=== PATIENT | male | born 1965 | race Two or more races ===

== ENCOUNTER 2018-09-28 07:30 | Inpatient (IN) | payer OTHER ==
[2018-09-28] VITALS (30 sets, daily range): BP systolic 90–136; BP diastolic 38–65; PULSE 48–80; RESP 7–25; Ht 177.8 cm; Wt 82.6 kg
[~2018-09-28] VITALS: Ht 177.8 cm; Wt 82.6 kg
[~2018-09-28 07:30] MED LIST: CEFAZOLIN 1 GM INJ ONE; DEXAMETHASONE 4 MG/ML 5 ML INJ ONE; SUCCINYLCHOLINE CHLORIDE 100 MG/5 ML SYG IV ONE
[2018-09-28] MEDS ORDERED: POLYMYXIN/BACITRACIN 1L IRRIG ONE (09:21)
[2018-09-28] MEDS ORDERED: BUPIVACAINE 0.25% (MPF) 30 ML INJ ONE (09:21)
--- NOTE | 2018-09-28 09:37 | PREAC ---
Date/Time of Note Date/Time of Note DATE: 09/28/18 TIME: 09:36 Anesthesia Eval and Record Evaluation Time Pre-Procedure Interview DATE: 09/28/18 TIME: 09:36 Age 53 Sex male NPO: 8 hrs Preoperative diagnosis ventral hernia Planned procedure component separation for repair of ventral hernia Past Medical History Past Medical History: Includes Endo: Other (h/p pheocytochroma s/p removal and cured) Surgery & Anesthesia Issues No known issue Meds Anticoagulation: No Beta Steve within 24 hr: No Reason Beta Steve not given: Pt. not on B-Steve Meds reviewed: Yes Allergies Allergies Reviewed: Yes Labs/Studies Labs Reviewed: Reviewed by anesthesiologist test: N/A Studies: ECG Pre-procedure Exam Last vitals Vital Signs Date Temp Pulse Resp B/P (MAP) Pulse Ox O2 O2 Flow FiO2 Time Delivery Rate 09/28/18 97.2 54 16 136/62 100 Room Air 07:48 (86) Airway: Adequate mouth opening, Adequate thyromental dist Mallampati: Mallampati III Teeth: Normal Lung: Normal Heart: Normal ASA Physical Status ASA physical status: 2 Emergency: None Planned Anesthetic General/MAC: ETT Planned Pain Management Single shot nerve block, Parenteral pain med, Local by surgeon Pre-operative Attestations Prior to commencing anesthesia and surgery, the patient was re-evaluated, there was verification of: *The patient's identity *The results of appropriate recent lab work and preoperative vital signs *The above evaluation not changing prior to induction *Anesthetic plan, risk benefits, alternative and complications discussed with patient/family; questions answered; patient/family understands, accepts and wishes to proceed. TATO GONGORA MD Sep 28, 2018 09:37
[2018-09-28] MEDS ORDERED: LEVALBUTEROL (NEB) 1.25 MG/0.5 ML AMP HHN PRN (10:00)
[2018-09-28] MEDS ORDERED: ONDANSETRON 4 MG INJ IV PRN ×2 (10:00→15:00)
[2018-09-28] MEDS ORDERED: HYDROmorphONE 1 MG/5 ML IV SYRINGE IV PRN ×3 (10:00)
[2018-09-28] MEDS ORDERED: FENTAnyl 50 MCG/ML VIAL IV PRN ×2 (10:00)
[2018-09-28] MEDS ORDERED: MEPERIDINE 25 MG INJ IV PRN (10:00)
[2018-09-28] MEDS ORDERED: KETOROLAC 30 MG INJ IV PRN (10:00)
[2018-09-28] MEDS ORDERED: DIPHENHYDRAMINE 50 MG INJ IV PRN ×2 (10:00→15:00)
[2018-09-28] MEDS ORDERED: FENTAnyl 50 MCG/ML VIAL ONE ×2 (10:23→12:54)
[2018-09-28] MEDS ORDERED: MIDAZOLAM 1 MG/ML 2 ML INJ ONE (10:24)
[2018-09-28] MEDS ORDERED: ONDANSETRON 4 MG INJ ONE (10:27)
[2018-09-28] MEDS ORDERED: METOCLOPRAMIDE 10 MG INJ ONE (10:29)
[2018-09-28] MEDS ORDERED: ROPIVACAINE 0.5 % 30 ML VIAL ONE (10:31)
[2018-09-28] MEDS ORDERED: SOD CHLORIDE 0.9% 1,000 ML IV SCH (12:00)
[2018-09-28] MEDS ORDERED: LIDOCAINE 2% (SDV) 5 ML INJ ONE (12:48)
[2018-09-28] MEDS ORDERED: PROPOFOL 20 ML ONE (12:48)
[2018-09-28] MEDS ORDERED: ROCURONIUM 50 MG INJ ONE ×2 (12:49)
[2018-09-28] MEDS ORDERED: morphine SULFATE/PF (10 MG/10 ML) INJ ONE (12:49)
[2018-09-28] MEDS ORDERED: hydrALAzine 20 MG INJ ONE (13:09)
--- NOTE | 2018-09-28 14:32 | OPR ---
Date/Time of Note Date/Time of Note DATE: 09/28/18 TIME: 14:16 Operative Report Procedure Date: Sep 28, 2018 Preoperative Diagnosis recurrent incarcerated incisional hernia pheochromocytoma Postoperative Diagnosis same Operation/Procedure Performed 1. right rectus musculocutaneous flap 2. left rectus musculocutaneous flap 3. open recurrent incarcerated incisional hernia repair 4. implantation of 15 x 20 cm proceed mesh 5. open lysis of adhesions 90 mins 6. repair of right rectus muscle and rectus sheath 7. repair of left rectus muscle and rectus sheath 8. open umbilical hernia repair 9. localized adjacent tissue transfer with the use of skin flaps 84 sq cm defect of the abdominal trunk Surgeon see signature line Twisting Frame Fixer Shan Womack Anesthesia Type: general Estimated Blood Loss: 100 - 150 ml's Transfusion none Specimen none Grafts/Implants none Complications none Pt Condition Post Procedure: stable Indications This is a 53-year-old male with a very challenging recurrent incarcerated incisional hernia. He had an open operation for a pheochromocytoma which had to be entered into the abdomen twice. He has a chevron incision that is extensive and a large midline incision. The patient was told that this was a very difficult operation due to his 2 incisions that are out across to each other. This promotes poor vascularity of the surrounding tissues and recurrent hernia is very likely. These risks and other additional risks were discussed the patient thoroughly. All risks benefits personnel potential complications were discussed the patient. Potential complications including but not limited to bleeding infection mesh infection mesh migration recurrence of hernia bowel injury intra-abdominal organ injury fistula were discussed the patient. Patient had ample time for questions and all questions were answered. Due to the discomfort from the hernia patient wanted to proceed with the operation. Procedure Description Patient is taken to the OR and prepped and draped in usual sterile fashion. Surgical timeout is performed. IV antibiotics were given. The midline cicatrix was initially excised with a 10 blade this is taken off with cautery. The midline is then sharply entered with a 10 blade. The very large hernia defect is identified. There was an extensive amount of adhesions to the anterior abdominal wall due to his multiple operations. Careful lysis of adhesions was performed allowing small bowel to be removed from the area of focus along the midline. The incarcerated hernia was then reduced along with careful lysis of adhesions. This area was then verified so that fascial edges were freshened. Left rectus flap was developed by initially entering the rectus space. The rectus space was entered and this incision was extended superiorly and inferiorly along the medial aspect of the rectus muscle. Initial inspection showed that due to the chevron incision that the rectus muscle was attenuated. Additionally the rectus sheath was also attenuated but disconnected at the site of the chevron incision. The posterior rectus sheath was repaired using nvvrfv-[id number] #1 Prolene on the left aspect. The rectus muscle was also repaired with reapproximation of the superior inferior left rectus with [id number]-oo-nwgmo #1 Prolenes. The anterior rectus sheath was also repaired with mgqnss-ob-lsgxz #1 Prolene. Due to the prior incisions and adhesion formation the retrorectus space could not be entered easily. The anterior rectus space was however slightly less difficult and accessed. The left rectus musculofascial flap was developed in this fashion. The right rectus musculofascial flap was developed. The right rectus space was entered and this space was developed superior and inferiorly along the medial aspect of the rectus muscle. The right rectus muscle had the similar features of the left rectus muscle with severe attenuation of the muscle. Additionally due to the chevron incision in the subsequent recurrent hernia was incarcerated with the anterior and posterior rectus sheath were also in discontinuity. The right posterior rectus sheath was reapproximated and repaired with [id number]-qr-kvyai #1 Prolenes. The rectus muscle was then also reapproximated with ngsagi-ui-qlnii #1 Prolenes. The anterior rectus sheath on the right rectus was also repaired using zptdrn-jg-pufkm #1 Prolene. The posterior rectus sheath and the rectus muscle were then closed in the midline with a running #1 loop PDS from superior to inferior and inferior to superior. At the inferior aspect of the midline incision a small umbilical hernia was identified. The umbilical hernia was repaired with ggjomk-qy-usxwe #1 Prolenes. After development of the anterior rectus space and with good hemostasis a 15 x 20 cm proceed mesh was secured in place with interrupted #1 Prolene in the anterior rectus space. The anterior rectus sheath was then closed primarily with a running #1 loop PDS from superior to inferior and inferior superior and tied in the middle. Antibiotic irrigation was applied to the incision. Very large skin defect remained. Localized adjacent to his transfer with these of skin flaps was performed. Right and left skin flaps were reapproximated and brought in the midline. The skin was then closed with skin millie. Dry dressings were applied. The anesthesiologist then proceeded to place an epidural for pain control. Rishabh ALLISON Sep 28, 2018 14:30
[2018-09-28] MEDS ORDERED: EPHEDrine SULFATE 50 MG/5 ML SYG ONE (14:46)
--- NOTE | 2018-09-28 14:49 | NUR ---
PACU: Received patient in pacu via gurney s/p open compartment separation vss, HOB @ semi ybarra position breathing with ease, abdominal dressing dry & intact , epidural tube attached to place continuous epidural , machine sole leveler , started by ELIDA Jhaveri, huertas intact & draining, scd placed on both legs, will continue to monitor.
--- NOTE | 2018-09-28 14:55 | PAC ---
Date/Time of Note Date/Time of Note DATE: 09/28/18 TIME: 14:53 Post-Anesthesia Notes Post-Anesthesia Note Last documented vital signs Vital Signs Date Temp Pulse Resp B/P (MAP) Pulse Ox O2 O2 Flow FiO2 Time Delivery Rate 09/28/18 97.2 54 16 136/62 100 Room Air 07:48 (86) Activity: WNL Respiratory function: WNL Cardiovascular function: WNL Mental status: Baseline Pain reasonably controlled: Yes Hydration appropriate: Yes Nausea/Vomiting absent: Yes TATO GONGORA MD Sep 28, 2018 14:55
[2018-09-28] MEDS ORDERED: NALOXONE (0.4 MG/ML) INJ IV PRN (15:00)
[2018-09-28] MEDS ORDERED: ZOLPIDEM 5 MG TAB PO PRN (15:00)
[2018-09-28] MEDS: FENTAnyl 2MCG/ML-ROPIV 0.2% 100 ML BAG EPI SCH ×2 (15:22→22:00)
[2018-09-28] MEDS: LACTATED RINGER'S 1,000 ML IV SCH ×2 (15:23→21:25)
--- NOTE | 2018-09-28 15:28 | NUR ---
ABHISHEKU; Sofiya from the Lab called for the results. Called & Notified Dr Velasquez right away, aware of the lab results. .RB
[2018-09-28] MEDS: AMPICILLIN/SULB 3 GM/NS (PMX) 100 ML IVPB SCH ×2 (15:46→21:25)
--- NOTE | 2018-09-28 18:02 | NUR ---
PACU: Transferred patient to room 416 B via bed AAOX4 vss, HOB @ semi ybarra position breathing with ease, abdominal dressing dry & intact with abdominal binder, epidural tube attached to place continuous epidural denies pain, family @ bedside talking to patient, huertas catheter patent & draining, scd on both legs, had few ice chips, report given to ENIO Crowell Addendum: 09/28/18 at 1909 by ANNE MARIE SHORT RN called Dr Velez if patient ok to change admit status to med/surg since patient is stable , he gave his OK. order carried out.
--- NOTE | 2018-09-28 18:15 | NUR ---
PATIENT IN FROM PACU,FULLY AWAKE ALERT,TRANSFERRED TO BED X3 ASSIST.PATIENT HAS EPIDURAL OF FENTANYL 2MCG/ML AND ROPIVACAINE AT 12ML/HR SITE CHECKED WITH NO LEAKING NOTED,EPIDURAL LINE ANCHORED AND TAPE TO PATIENT'S SHOULDER AND ANT. CHEST.PATIENT ABLE TO MOVE BLES,CIRCULATION AND PERIPHERAL PULSES ADEQUATE,PT REPORTED OF SLIGHT NUMBNESS OF LEFT LEG.PAIN 0/10.PATIENT ASSESSED WITH ANT ABDOMINAL DRESSING WITH BLOOD STAIN ,NO ACUTE BLEEDING NOTED WITH ABDOMINAL BINDER IN PLACE.INSTRUCTED ON USE OF CALL LIGHT AND ICE CHIPS ONLY.ADVISED BEDREST.
--- NOTE | 2018-09-28 22:50 | NUR ---
UNASYN 3GM IN 100 ML OF NS STARTED AT 2124 WAS INFUSED ORDERED. UNABLE TO INPUT INTO IV SPREADSHEET.
--- NOTE | 2018-09-29 01:09 | HP ---
DATE OF ADMISSION: 09/28/2018 HISTORY OF PRESENT ILLNESS: The patient is a 53-year-old gentleman with a history of abdominal surge ry for pheochromocytoma, which was subsequently complicated by recurrent incarcerated incisional connor ia. The patient was seen by Dr. Velez as an outpatient and was brought into hospital today and underwe nt an open recurrent incarcerated incisional hernia repair with mesh and [facility] use of skin flaps. The patient is being admitted for further evaluation and manageme nt. The patient denies history of chest pain or shortness of breath. No history of headache, dizzin ess, or syncope. No history of fever or chills. No history of weakness or numbness in any extremity . No history of recent fever or chills. REVIEW OF SYSTEMS: Other than postoperative pain, rest of the review of systems was unremarkable. PAST MEDICAL HISTORY: As stated above. ALLERGIES: NONE. SOCIAL HISTORY: No smoking, no alcohol. FAMILY HISTORY: Noncontributory. MEDICATIONS PRIOR TO ADMISSION: None. PHYSICAL EXAMINATION: GENERAL: The patient found to be awake, alert, and fairly oriented. VITAL SIGNS: Temperature 98.3, pulse 79, respirations 18, blood pressure 119/56, O2 saturation 96% o n 2 liters nasal cannula. HEENT: No eye discharge or redness. Conjunctivae normal. Oropharynx clear. NECK: No mass. CHEST: Fairly clear. CARDIOVASCULAR: S1, S2 normal. No murmur. ABDOMEN: The patient is status postsurgery as mentioned. EXTREMITIES: No leg edema. Pedal pulses palpable. SKIN: Without acute rash. NEUROLOGIC: The patient is awake, alert, and fairly oriented with no gross focal deficit. LABORATORY DATA: WBC 17.5, hemoglobin 12.3, platelet 334. Sodium 138, potassium 3.8, BUN 12, creati nine 0.6, glucose 141. Liver enzymes normal. IMPRESSION: Recurrent incarcerated incisional hernia secondary to surgery for pheochromocytoma, stat us post incarcerated incisional hernia repair as well as localized adjacent tissue transfer with the use of skin flaps. PLAN: The patient will be admitted on medical floor. The patient will be kept n.p.o. and will be st arted on IV fluids. The patient will receive IV Unasyn as per protocol. For pain control, the patie nt will be given Tylenol, Byron, and IV Dilaudid depending upon the severity of the pain. We will do followup CBC and CMP. Continue SCD for DVT prophylaxis. Further recommendation to [facility] course and recommendation per Dr. Velez. We will continue to follow. Dictated By: DAMIAN LACEY MD AB/NTS Conf#: [id number] DID#: [id number] CC: MATT VELEZ MD;*EndCC*
[2018-09-29] MEDS: AMPICILLIN/SULB 3 GM/NS (PMX) 100 ML IVPB SCH ×2 (03:12→09:13)
--- NOTE | 2018-09-29 05:18 | NUR ---
EOSS PATIENT RESTED WELL THROUGHOUT THE NIGHT. NO S/S OF DISTRESS NOTED. EPIDURAL IN PLACE. INFUSING ORDERED. REPORTS SLIGHTLY LESS FEELING TO LOWER LEGS. PULSES INTACT AND ABLE TO WIGGLE TOES. CONTINUOUS PULSE OXIMETER IN PLACE.NO C/O PAIN. ABDOMINAL DRESSING WITH DRY OLD BLOOD STAIN TO TOP. NO NEW DRAINAGE NOTED THROUGH THE SHIFT. ABDOMINAL BINDER IN PLACE. ANTIBIOTICS INFUSED ORDERED. NO REACTION NOTED. TOLERATING WELL. TOLERATING ICE CHIPS. NO C/O NAUSEA. EDUCATED ON SIDE EFFECTS. VERBALIZED HIS UNDERSTANDING. SIDE EFFECTS PAPER AT BEDSIDE. INSTRUCTED ON INCENTIVE SPIROMETER. OBSERVED USING INSTRUCTED. BED ALARM ACTIVATED. CALL LIGHT IN REACH. WILL CONTINUE TO MONITOR.
[2018-09-29] MEDS: FENTAnyl 2MCG/ML-ROPIV 0.2% 100 ML BAG EPI SCH ×3 (05:46→21:32)
[2018-09-29 08:12] VITALS: BP 80/49; PULSE 53; RESP 18
[2018-09-29 09:06] VITALS: BP 91/46; PULSE 51; RESP 16
[2018-09-29] MEDS: LACTATED RINGER'S 1,000 ML IV SCH ×2 (09:10→20:49)
[2018-09-29] MEDS: CELECOXIB 200 MG CAP PO SCH (09:13)
[2018-09-29 09:17] VITALS: BP 96/48; PULSE 64; RESP 18
[2018-09-29 09:49] VITALS: BP 92/54; PULSE 50; RESP 18
--- NOTE | 2018-09-29 10:42 | PN ---
Date/Time of Note Date/Time of Note DATE: 09/29/18 TIME: 10:39 Assessment/Plan VTE Prophylaxis Risk score (from Nsg)>0 risk: 2 SCD applied (from Nsg): Yes Pharmacological prophylaxis: other Lines/Catheters IV Catheter Type (from Nrsg): Peripheral IV Urinary Cath still in place: Yes Reason Cath still needed: urinary retention Assessment/Plan Assessment/Plan s/p open component separation for recurrent incarcerated incisional hernia with umbilical hernia repaired with mesh patient with peace sign incision meaning with chevron and midline incision with increase recurrence of hernia risk due to poor vascularization and attenuated tissues, fascia, and rectus muscle doing well pain control adequate will start clears Result Diagram: 09/29/18 0644 09/29/18 0427 Results 24hrs Laboratory Tests Test 09/28/18 15:08 09/29/18 04:27 09/29/18 06:40 09/29/18 06:44 White Blood Count 17.5 H 10.4 # Red Blood Count 3.75 L 3.49 L Hemoglobin 12.3 L 11.4 L Hematocrit 36.2 L 34.4 L Mean Corpuscular 96.5 98.6 Volume Mean Corpuscular 32.8 32.7 Hemoglobin Mean Corpuscular 34.0 33.1 Hemoglobin Concent Red Cell 13.4 14.0 Distribution Width Platelet Count 334 277 Mean Platelet 9.8 9.9 Volume Immature 0.300 0.400 Granulocytes % Neutrophils % 81.1 H 70.6 Lymphocytes % 13.9 L 17.5 Monocytes % 4.2 11.4 H Eosinophils % 0.2 0.0 Basophils % 0.3 0.1 Nucleated Red 0.0 0.0 Blood Cells % Immature 0.060 H 0.040 H Granulocytes # Neutrophils # 14.2 H 7.3 Lymphocytes # 2.4 1.8 Monocytes # 0.7 1.2 H Eosinophils # 0.0 0.0 Basophils # 0.1 0.0 Nucleated Red 0.0 0.0 Blood Cells # CBC Results 1 *H Faxed/Phoned Sodium Level 138 139 Potassium Level 3.8 4.0 Chloride Level 107 105 Carbon Dioxide 23 25 Level Anion Gap 8 9 Blood Urea 12 10 Nitrogen Creatinine 0.67 0.65 Est Glomerular > 60 > 60 Filtrat Rate mL/min Glucose Level 141 99 # Calcium Level 8.3 L 8.4 Total Bilirubin 0.3 0.6 Direct Bilirubin 0.00 0.00 Indirect Bilirubin 0.3 0.6 Aspartate Amino 25 36 Transf (AST/SGOT) Alanine 49 39 Aminotransferase ( ALT/SGPT) Alkaline 84 64 Phosphatase Total Protein 5.7 L 5.5 L Albumin 3.4 3.3 Globulin 2.30 2.20 Albumin/Globulin 1.47 1.50 Ratio Lab Scanned Report REFERENCE LAB Subjective 24 Hr Interval Summary Free Text/Dictation patient doing well, no nausea no vomiting Exam/Review of Systems Exam Vitals Vital Signs Date Temp Pulse Resp B/P (MAP) Pulse Ox O2 O2 Flow FiO2 Time Delivery Rate 09/29/18 99.8 50 18 92/54 (67) 93 Room Air 09:49 09/28/18 2.0 19:56 Intake and Output 09/28/18 09/28/18 09/29/18 1515:00 23:00 07:00 IntakeIntake Total 3000 ml 1400 ml OutputOutput Total 250 ml 1600 ml BalanceBalance 2750 ml -200 ml Additional Comments c/d/i dressings intact Results Results 24hrs Laboratory Tests Test 09/28/18 15:08 09/29/18 04:27 09/29/18 06:40 09/29/18 06:44 White Blood Count 17.5 H 10.4 # Red Blood Count 3.75 L 3.49 L Hemoglobin 12.3 L 11.4 L Hematocrit 36.2 L 34.4 L Mean Corpuscular 96.5 98.6 Volume Mean Corpuscular 32.8 32.7 Hemoglobin Mean Corpuscular 34.0 33.1 Hemoglobin Concent Red Cell 13.4 14.0 Distribution Width Platelet Count 334 277 Mean Platelet 9.8 9.9 Volume Immature 0.300 0.400 Granulocytes % Neutrophils % 81.1 H 70.6 Lymphocytes % 13.9 L 17.5 Monocytes % 4.2 11.4 H Eosinophils % 0.2 0.0 Basophils % 0.3 0.1 Nucleated Red 0.0 0.0 Blood Cells % Immature 0.060 H 0.040 H Granulocytes # Neutrophils # 14.2 H 7.3 Lymphocytes # 2.4 1.8 Monocytes # 0.7 1.2 H Eosinophils # 0.0 0.0 Basophils # 0.1 0.0 Nucleated Red 0.0 0.0 Blood Cells # CBC Results 1 *H Faxed/Phoned Sodium Level 138 139 Potassium Level 3.8 4.0 Chloride Level 107 105 Carbon Dioxide 23 25 Level Anion Gap 8 9 Blood Urea 12 10 Nitrogen Creatinine 0.67 0.65 Est Glomerular > 60 > 60 Filtrat Rate mL/min Glucose Level 141 99 # Calcium Level 8.3 L 8.4 Total Bilirubin 0.3 0.6 Direct Bilirubin 0.00 0.00 Indirect Bilirubin 0.3 0.6 Aspartate Amino 25 36 Transf (AST/SGOT) Alanine 49 39 Aminotransferase ( ALT/SGPT) Alkaline 84 64 Phosphatase Total Protein 5.7 L 5.5 L Albumin 3.4 3.3 Globulin 2.30 2.20 Albumin/Globulin 1.47 1.50 Ratio Lab Scanned Report REFERENCE LAB Rishabh ALLISON Sep 29, 2018 10:42
--- NOTE | 2018-09-29 15:08 | PN ---
DATE: 09/29/2018 SUBJECTIVE: Follow up on . The patient denies any chest pain. No reported nausea or vomiting. The patient is breathing comfortably. He did have low-grade temperature of 100.7 early this mornin g, now down to 99.8. No chills. PHYSICAL EXAMINATION: GENERAL: He is awake, alert. VITAL SIGNS: Temperature 99.8, pulse between 50 to 64, respirations 18, blood pressure 92/54, O2 sat uration 93 to 96 on room air. HEENT: No eye discharge or redness. NECK: No mass. CHEST: Fairly clear. CARDIOVASCULAR: S1, S2 normal. No murmur. ABDOMEN: The patient is status post surgery. EXTREMITIES: No leg edema. Pedal pulses are palpable. SKIN: Without acute rash. NEUROLOGIC: The patient is awake, alert, fairly oriented with no gross focal deficit. LABORATORY DATA: WBC 10.4, hemoglobin 9.4, platelet 277. Chemistry unremarkable. IMPRESSION: Recurrent incarcerated incisional hernia secondary to surgery for pheochromocytoma, stat us post open repair. The patient has been started on clear liquid diet. We will continue symptomati c treatment. The patient still has epidural which will be discontinued once cleared by anesthesiolog ist. We will continue to follow. Dictated By: DAMIAN LACEY MD AB/RAKESH Conf#: [id number] DID#: [id number] CC: DAMIAN LACEY MD; MATT ALLISON MD;*EndCC*
[2018-09-29 19:30] VITALS: BP 109/54; PULSE 58; RESP 18
--- NOTE | 2018-09-29 19:38 | NUR ---
End of shift note Patient remains alert and oriented x4, resting comfortably in bed. Patient remains on an epidural 12ml/hr. Patient denied experiencing any pain/discomfort. Patient encouraged to do the IS and was able to get it up to 2500. Patient verbalized passing gas and Dr Velez increased diet to clear liquids. Patient remains on IVF LR infusing at 100ml/hr. Dressing noted to the mid abdomen remains dry and intact with a shadow of dry bloody drainage underneath. Patient continues to have a Flores catheter in placed and remains patent. Patient educated on safety precautions and encouraged to use the call campos for assistance. Call campos remains within reach. No family at the bedside. Patient was noted sitting in the chair at change of shift, after linens changed. Patient was encouraged not to try to get back to be without assistance. Incoming Rn Joana delarosa and I informed the [place] [facility] regarding patient in the chair. Patient stable at this time.
[2018-09-29] MEDS: HYDROmorphONE 0.5 MG/0.5 ML SYG IV PRN (21:33)
[2018-09-30 02:34] VITALS: BP 116/58; PULSE 56; RESP 18
[2018-09-30] MEDS: FENTAnyl 2MCG/ML-ROPIV 0.2% 100 ML BAG EPI SCH ×3 (05:23→20:43)
[2018-09-30] MEDS: LACTATED RINGER'S 1,000 ML IV SCH ×3 (06:46→18:00)
--- NOTE | 2018-09-30 06:57 | NUR ---
EOSS PATIENT RESTED VERY WELL THROUGHOUT THE NIGHT. NO S/S OF DISTRESS NOTED. EPIDURAL REMAINS IN PLACE. REPORTS CONTINUED DECREASED FEELING TO LOWER LEGS. REASSURED EXPECTED WITH EPIDURAL. INSTRUCTED TO REPORT INCREASE IN THIS SENSATION. PULSES REMAIN INTACT AND STILL ABLE TO WIGGLE TOES. CONTINUOUS PULSE OXIMETER IN PLACE. MEDICATED X 1 WITH BREAKTHROUGH PAIN MEDICATION. EFFECTIVE. ABDOMINAL DRESSING WITH DRY AND INTACT. NO NEW DRAINAGE NOTED THROUGH THE SHIFT. ABDOMINAL BINDER IN PLACE.DIET ADVANCED DURING DAY. TOLERATING WELL. NO C/O NAUSEA. EDUCATED ON SIDE EFFECTS. VERBALIZED HIS UNDERSTANDING. SIDE EFFECTS PAPER AT BEDSIDE. INSTRUCTED ON INCENTIVE SPIROMETER. OBSERVED USING INSTRUCTED. BED ALARM ACTIVATED. CALL LIGHT IN REACH/ROOM PHONE IN EASY REACH. WILL CONTINUE TO MONITOR.
[2018-09-30 07:07] VITALS: BP 106/60; PULSE 55; RESP 15
[2018-09-30] MEDS: CELECOXIB 200 MG CAP PO SCH (07:42)
[2018-09-30] MEDS: ACETAMINOPHEN 500 MG TAB PO PRN (07:42)
--- NOTE | 2018-09-30 07:42 | NUR ---
C/O HEADACHE,GIVEN TYLENOL ORDERED.
--- NOTE | 2018-09-30 12:01 | PN ---
Date/Time of Note Date/Time of Note DATE: 09/30/18 TIME: 12:01 Assessment/Plan VTE Prophylaxis Risk score (from Ns)>0 risk: 7 SCD applied (from Ns): Yes Pharmacological prophylaxis: LMWH Lines/Catheters IV Catheter Type (from Nrsg): Peripheral IV Urinary Cath still in place: Yes Reason Cath still needed: skin wounds contaminated by urine Assessment/Plan Hospital Course Recurrent incarcerated incisional hernia secondary to surgery for pheochromocytoma, status post open repair. The patient has been started on clear liquid diet. We will continue symptomatic treatment. The patient still has epidural which will be discontinued once cleared by anesthesiologist. We will continue to follow. Result Diagram: 09/29/18 0644 09/29/18 0427 Subjective 24 Hr Interval Summary Free Text/Dictation Patient doing well after surgery, eating full liquids Exam/Review of Systems Exam Vitals Vital Signs Date Temp Pulse Resp B/P (MAP) Pulse Ox O2 O2 Flow FiO2 Time Delivery Rate 09/30/18 18 09:00 09/30/18 99.7 55 106/60 95 Room Air 07:07 (75) 09/28/18 2.0 19:56 Intake and Output 09/29/18 09/29/18 09/30/18 1515:00 23:00 07:00 IntakeIntake Total 300 ml 1600 ml 1350 ml OutputOutput Total 1500 ml 2100 ml BalanceBalance 300 ml 100 ml -750 ml Constitutional: well developed Head: normocephalic, atraumatic Neck: supple Respiratory: diminished breath sounds Cardiovascular: regular rate and rhythm Gastrointestinal: soft, non-tender Extremities: normal pulses Medications Medication Current Medications Lactated Ringer's 1,000 ml @ 100 mls/hr Q10H IV Last administered on 09/30/18at 06:46; Admin Dose 100 MLS/HR; Start 09/28/18 at 14:14 Hydromorphone HCl (Dilaudid) 0.2 mg Q2H PRN IV .PAIN 1-5 Last administered on 09/29/18at 21:33; Admin Dose 0.2 MG; Start 09/28/18 at 15:00 Hydromorphone HCl (Dilaudid) 0.4 mg Q2H PRN IV .PAIN 6-10; Start 09/28/18 at 15:00 Celecoxib (Celebrex) 200 mg DAILY PO Last administered on 09/30/18at 07:42; Admin Dose 200 MG; Start 09/29/18 at 09:00; Stop 10/01/18 at 09:01 Acetaminophen (Tylenol Tab) 500 mg Q4H PRN PO .PAIN 1-3 Last administered on 09/30/18at 07:42; Admin Dose 500 MG; Start 09/28/18 at 15:00 Acetaminophen/ Hydrocodone Bitart ([place] (5/325)) 1 tab Q4H PRN PO .PAIN 4-6; Start 09/28/18 at 15:00 Diphenhydramine HCl (Benadryl) 25 mg Q4H PRN IV .PRURITUS; Start 09/28/18 at 15:00 Ondansetron HCl (Zofran Inj) 4 mg Q6H PRN IV .NAUSEA/VOMITING; Start 09/28/18 at 15:00 Zolpidem Tartrate (Ambien) 5 mg HS MAY REPEAT X 1 PRN PO .INSOMNIA; Start 09/28/18 at 15:00 Naloxone HCl (Narcan) 0.2 mg Q2M PRN IV .RESP RATE; Start 09/28/18 at 15:00 Miscellaneous Information (* Miscellaneous Pharmacy Order) DURAMORPH: 3.5MG EPIDU... GIVEN NEURAXIAL XX ; Start 09/28/18 at 15:00 Fentanyl/ Ropivacaine 100 ml EPIDURAL (PCEA) EPI Last administered on 09/30/18at 05:23; Admin Dose 100 ML; Start 09/28/18 at 15:00 MALKA PUGH Sep 30, 2018 12:01
[2018-09-30 15:53] VITALS: BP 118/69; PULSE 54; RESP 18
--- NOTE | 2018-09-30 17:16 | NUR ---
POST OP DAY #2 OPEN REPAIR OF INCARCERATED INCISIONAL HERNIA AND OPEN REPAIR OF UMBILICAL HERNIA.PAIN IS CONTROLLED WITH EPIDURAL AT 12ML/HR.ABLE TO MOVE RT LEG AND MINIMAL NUMBNESS OF LEFT LEG.ATTEMPTED TO SIT UP IN A CHAIR AND BSC TOLERATED WITH ASSIST.PATIENT TOLERATING CLEAR LIQUIDS ND + FLATUS WITH HYPOACTIVE BS.
--- NOTE | 2018-09-30 17:55 | PN ---
DATE: 09/30/2018 SUBJECTIVE: I am following the patient for Dr. Velez post-operation day #2, status post laparotomy, re pair of recurrent ventral incisional incarcerated hernia to the open component separation. The patie nt has epidural for control of the pain and the Flores catheter SUBJECTIVE: No specific complaint, stated that today he has passed a little bit of gas with no nause a, no vomiting. VITAL SIGNS: Temperature maximum 99.7, heart rate 65, respirations 15, blood pressure 106/60, satura tion 95% ABDOMEN: The dressing is intact. Bowel sounds are present but are not normal, maybe 2+ to 3+. EXTREMITIES: The patient can move the right lower extremity almost full range but the left side is ve ry slow and he feels it is numb. (He states that even before this operation it has been numb because he had a spine operation, but he feels that the numbness is no more because of the epidural and also he cannot move it that much.) LABORATORY DATA: No lab data is available for today. ASSESSMENT AND PLAN: This is a 53-year-old gentleman who underwent open ventral incarcerated hernia repair with component separation. The patient epidural and today is postop day #2. The patient has been out of bed a little bit sitting in the chair last night, but in any case he has epidural and he cannot move his left lower extremity properly. Therefore, we are going to keep him in the bed and ep idural will be in place and Flores, we will keep the Flores in as well to monitor the urine output. Ke ep the patient on clear liquids and further decision for progressing diet will be made tomorrow. Dictated By: JUANCHO MERINO/RAKESH Conf#: [id number] DID#: [id number]
[2018-09-30 19:30] VITALS: BP 121/65; PULSE 60; RESP 18
[2018-10-01] MEDS: LACTATED RINGER'S 1,000 ML IV SCH ×3 (04:10→23:40)
[2018-10-01] MEDS: FENTAnyl 2MCG/ML-ROPIV 0.2% 100 ML BAG EPI SCH ×3 (04:17→18:25)
--- NOTE | 2018-10-01 06:55 | NUR ---
EOSS PATIENT RESTED WELL THROUGHOUT THE NIGHT. NO S/S OF DISTRESS NOTED. EPIDURAL REMAINS IN PLACE. REPORTS CONTINUED DECREASED FEELING TO LOWER LEGS. REASSURED EXPECTED WITH EPIDURAL. INSTRUCTED TO REPORT INCREASE IN THIS SENSATION. PULSES REMAIN INTACT. HE REPORTS LESS SENSATION TO LEFT LEG THAN RIGHT LEG. STILL ABLE TO WIGGLE TOES. CONTINUOUS PULSE OXIMETER IN PLACE. ABDOMINAL DRESSING WITH DRY AND INTACT. NO NEW DRAINAGE NOTED THROUGH THE SHIFT. ABDOMINAL BINDER IN PLACE. TOLERATING WELL. NO C/O NAUSEA. EDUCATED ON SIDE EFFECTS. VERBALIZED HIS UNDERSTANDING. SIDE EFFECTS PAPER AT BEDSIDE. INSTRUCTED ON INCENTIVE SPIROMETER. OBSERVED USING INSTRUCTED. BED ALARM ACTIVATED. CALL LIGHT IN REACH/ROOM PHONE IN EASY REACH. WILL CONTINUE TO MONITOR.
[2018-10-01 07:46] VITALS: BP 114/56; PULSE 50; RESP 18
[2018-10-01] MEDS: CELECOXIB 200 MG CAP PO SCH (10:03)
--- NOTE | 2018-10-01 11:18 | NUR ---
Noted a discrepancy on eMAR for Fentanyl epidural when I went to hang new bag. Settings reveiwed w/ Lift Slab Operator- Pierce. Report endorsed to me was that epidural dose was 12ml/hr cont, order on eMAR had had nascar pit crew person settings on it. Called and discussed this with Dr. Peck who discontinued the STEEL LOADER settings and gave me a tel. order to continue with the dose of 12ml/hr. spring assembler supervisor made aware.
--- NOTE | 2018-10-01 12:43 | PN ---
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 The patient has been started on clear liquid diet. We will continue symptomatic treatment. The patient still has epidural which will be discontinued once cleared by anesthesiologist. We will continue to follow. Result Diagram: 09/29/18 0644 09/29/18 0427 Subjective 24 Hr Interval Summary Free Text/Dictation Patient still have postoperative pain but is controlled. Exam/Review of Systems Exam Vitals Vital Signs Date Temp Pulse Resp B/P (MAP) Pulse Ox O2 O2 Flow FiO2 Time Delivery Rate 10/01/18 16 09:00 10/01/18 99.3 50 114/56 95 Room Air 07:46 (75) 09/28/18 2.0 19:56 Intake and Output 09/30/18 09/30/18 10/01/18 1515:00 23:00 07:00 IntakeIntake Total 400 ml 1600 ml 1100 ml OutputOutput Total 2000 ml 3400 ml BalanceBalance -1600 ml 1600 ml -2300 ml Constitutional: well developed Head: normocephalic, atraumatic Neck: supple Respiratory: clear to auscultation Cardiovascular: regular rate and rhythm Gastrointestinal: soft, non-tender Extremities: normal pulses Medications Medication Current Medications Lactated Ringer's 1,000 ml @ 100 mls/hr Q10H IV Last administered on 10/01/18at 04:10; Admin Dose 100 MLS/HR; Start 09/28/18 at 14:14 Hydromorphone HCl (Dilaudid) 0.2 mg Q2H PRN IV .PAIN 1-5 Last administered on 09/29/18at 21:33; Admin Dose 0.2 MG; Start 09/28/18 at 15:00 Hydromorphone HCl (Dilaudid) 0.4 mg Q2H PRN IV .PAIN 6-10; Start 09/28/18 at 15:00 Acetaminophen (Tylenol Tab) 500 mg Q4H PRN PO .PAIN 1-3 Last administered on 09/30/18at 07:42; Admin Dose 500 MG; Start 09/28/18 at 15:00 Acetaminophen/ Hydrocodone Bitart ([place] (5/325)) 1 tab Q4H PRN PO .PAIN 4-6; Start 09/28/18 at 15:00 Diphenhydramine HCl (Benadryl) 25 mg Q4H PRN IV .PRURITUS; Start 09/28/18 at 15:00 Ondansetron HCl (Zofran Inj) 4 mg Q6H PRN IV .NAUSEA/VOMITING; Start 09/28/18 at 15:00 Zolpidem Tartrate (Ambien) 5 mg HS MAY REPEAT X 1 PRN PO .INSOMNIA; Start 09/28/18 at 15:00 Naloxone HCl (Narcan) 0.2 mg Q2M PRN IV .RESP RATE; Start 09/28/18 at 15:00 Miscellaneous Information (* Miscellaneous Pharmacy Order) DURAMORPH: 3.5MG EPIDU... GIVEN NEURAXIAL XX ; Start 09/28/18 at 15:00 Fentanyl/ Ropivacaine 100 ml EPIDURAL (PCEA) EPI ; Start 09/28/18 at 15:00 MALKA PUGH Oct 01, 2018 12:43
--- NOTE | 2018-10-01 15:13 | PN ---
DATE: 10/01/2018 Postop day #3, status post open repair of the incarcerated ventral incisional hernia with component s eparation in application of the mesh. The patient has epidural and Flores catheter. SUBJECTIVE: States that feels much better today, had a bowel movement, passed some gas. No nausea, no vomiting. Pain is under control with epidural. Still has some numbness in left lower extremity a nd power of the movement of the left side is much weaker than the right side. OBJECTIVE: VITAL SIGNS: Temperature 99.3, heart rate 50, respiration 18, blood pressure 114/56, saturation 95% room air. HEART: Regular. LUNGS: Clear. ABDOMEN: Soft. Dressing was changed. There is no cellulitis or infection at this time. LABORATORY DATA: WBC dropped to normal 10,400 and 70% segmented, hemoglobin 11.4, hematocrit 34.4. ASSESSMENT: The patient is stable postop day #3. PLAN: Continue current care. Advance diet to full liquid diet. Keep the epidural at least tomorrow . Tomorrow, we will check with the anesthesiologist to see if they want to remove the epidural then later on we will remove the Flores catheter and hopefully, we can ambulate the patient later in the af ternoon if they do it in the morning. Dictated By: JUANCHO PEREZ MD PS/NTS Conf#: [id number] DID#: [id number] CC: MATT ALLISON MD; DAMIAN LACEY MD;*EndCC*
[2018-10-01] MEDS: ACETAMINOPHEN 500 MG TAB PO PRN (15:43)
[2018-10-01] MEDS: HYDROCODONE/APAP (5/325) TAB PO PRN ×2 (17:09→23:38)
[2018-10-01 17:16] VITALS: BP 118/58; PULSE 44; RESP 18
--- NOTE | 2018-10-01 18:50 | NUR ---
Called and notified Dr. Peck of pt's HR which is fluctuating from 44- 51. states awareness, " that is that pt's baseline" Pt denies any SOB; asymptomatic. Cont pulse ox in progress. O2 sats >92% RA. Epidural cont @ 12ml/hr. F/C intact, dsg C/D/I. Afebrile
[2018-10-01 19:09] VITALS: BP 123/68; PULSE 51; RESP 16
[2018-10-01] MEDS: HYDROmorphONE 0.5 MG/0.5 ML SYG IV PRN (21:13)
[2018-10-02 01:13] VITALS: BP 108/52; PULSE 45; RESP 16
[2018-10-02] MEDS: FENTAnyl 2MCG/ML-ROPIV 0.2% 100 ML BAG EPI SCH (01:28)
[2018-10-02] MEDS: HYDROCODONE/APAP (5/325) TAB PO PRN ×3 (03:36→20:38)
--- NOTE | 2018-10-02 06:27 | NUR ---
End of Shift Summary: Pt is A&O x4. Vital signs within normal limits. No acute changes. Respiratory and hemodynamics remain stable. Patient denies chest pain, palpitations, shortness of breath, nausea, vomiting, headache, cough, or changes in bowel/bladder habits. IV site is intact and asystematic. IV fluids and IVPB infusing as ordered. Pt tolerated full liquids. Dr. Peck aware of patient's HR which is fluctuating from 44- 65. Pt states that is his baseline. Pt kept on monitor throughout the night. Pt receiving fentanyl epidural at rate 12 ml/hr. Bag changed with charge nurse ENIO Thomas. Wasted 18 ml with ENIO Alexander. Pt received norco and dilaudid for extra pain management. Doctor aware and approved additional pain medication if pain is not managed with fentanyl. Dressing is clean, dry, and intact. Flores draining properly with clear yellow urine. Safety precautions maintained throughout the shift. Bed in lowest position and bed alarm activated. Call light within reach. Hourly rounding rendered. All needs met.
[2018-10-02] MEDS: HYDROmorphONE 0.5 MG/0.5 ML SYG IV PRN ×5 (07:39→23:34)
[2018-10-02 08:02] VITALS: BP 128/75; PULSE 44; RESP 18
[2018-10-02] MEDS: LACTATED RINGER'S 1,000 ML IV SCH (10:11)
--- NOTE | 2018-10-02 12:06 | NUR ---
Have offered to assist patient to sit in chair 3 times since epidural has been d/c. Patient has refused. Patient states he is aware he needs to sit in the chair before he can ambulate per direction from Dr. Womack. Reported to VAN DRIVER HELPER so VAN DRIVER HELPER is aware.
[2018-10-02 15:00] VITALS: BP 126/68; PULSE 64; RESP 18
--- NOTE | 2018-10-02 17:01 | PN ---
DATE: 10/02/2018 Postop day #4 status post open repair of the recurrent incarcerated ventral incisional hernia with co mponent separation and repair with mesh application. The patient because of too much pain has receiv ed epidural and was on epidural and Flores catheter and now gradually, the patient has got better, monica ntually had a bowel movement and today, the anesthesiologist removed the epidural and started the pat ient on morphine p.r.n. IV. SUBJECTIVE: Feels better. Apparently has been out of bed, walks around. OBJECTIVE: GENERAL: Awake, alert, oriented x3. VITAL SIGNS: Temperature maximum 98.5, heart rate 45, respirations 16, blood pressure 108/52, satura tion 93% room air. HEAD: Okay, normocephalic. CHEST: Symmetrical expansion. HEART: Regular. LUNGS: Clear. ABDOMEN: Slightly distended but soft. Bowel sounds are 3+/4+. EXTREMITIES: Legs have no calf tenderness. Incision is dry, clean at this time. PLAN: Observe the patient for frequency of urination and have monitoring of urination after removing the Flores. Advance diet from full liquid to regular diet as tolerated. If the patient is stable by tomorrow, the patient can be discharged home by tomorrow. Dictated By: JUANCHO PEREZ MD PS/NTS Conf#: [id number] DID#: [id number] CC: MATT ALLISON MD; DAMIAN LACEY MD;*EndCC*
--- NOTE | 2018-10-02 19:44 | NUR ---
EOSS Fentanyl epidural dc, patient able to sit in chair and ambulate with walker. Diet advanced to regular for dinner, patient tolerated well. Flores catheter d/c and patient able to void on his own. IV fluids completed. Dr. Womack will change wound dressing tomorrow, dressing intact on abdomen and abdominal binder in place. [place] increased to 5-10mg as needed for pain, IV Dilaudid continues. Patient encouraged to try po pain medication. Possible d/c tomorrow per Dr. Marquez and Dr. Womack. Hourly rounding performed, bed in low, locked position and call light kept within reach.
[2018-10-02 20:25] VITALS: BP 122/77; PULSE 43; RESP 20
--- NOTE | 2018-10-03 00:36 | PN ---
DATE: 10/02/2018 SUBJECTIVE: The patient continues to tolerate p.o. diet. Denies any chest pain or shortness of willis th. The patient did have a bowel movement today. Epidural has been removed. The patient will be st arted on [place] 1 to 2 q.4 p.r.n. for pain in addition to IV Dilaudid. OBJECTIVE: NEUROLOGIC: Revealed the patient to be awake, alert, fairly oriented. VITAL SIGNS: Temperature 98.5, pulse between 43 to 64, respirations 20, blood pressure 122/77, O2 sa turation 97% on room air. HEENT: No eye discharge or redness. Conjunctivae and lids are normal. Oropharynx is clear. NECK: No mass. CHEST: Fairly clear. CARDIOVASCULAR: S1, S2 normal. ABDOMEN: Soft, slightly distended. Bowel sounds plus. EXTREMITIES: No leg edema. NEUROLOGIC: The patient is awake, alert, oriented with no gross focal deficit. IMPRESSION: 1. Status post open repair of recurrent incarcerated ventral incisional hernia. 2. History of exploratory laparotomy and surgery x2 for pheochromocytoma. PLAN: The patient's diet has been advanced to regular today and if patient continues to tolerate t well, he will be discharged home tomorrow. The patient was seen by Dr. Womack today and we will al so make sure his pain is controlled with oral pain medication. Continue SCD for DVT prophylaxis. Dictated By: DAMIAN LACEY MD AB/NTS Conf#: [id number] DID#: [id number] CC: MATT ALLISON MD;*EndCC*
[2018-10-03] MEDS: HYDROCODONE/APAP (5/325) TAB PO PRN (01:37)
[2018-10-03 02:28] VITALS: BP 145/81; PULSE 45; RESP 19
--- NOTE | 2018-10-03 06:13 | NUR ---
RN End of Shift Summary: Pt is A&O x4. Vital signs within normal limits. No acute changes. Respiratory and hemodynamics remain stable. Patient denies chest pain, palpitations, shortness of breath, nausea, vomiting, headache, cough, or changes in bowel/bladder habits. Bradycardiac of 43-50 HR. Doctor aware. This is patient's baseline. IV site is intact and asystematic. Pt tolerated regular diet. Pt received norco and dilaudid for pain management. Dressing is clean, dry, and intact. Pt using urinal. Voiding without difficulty. SCD's in place. Surgical dressing kept clean and dry. Encouraged inceptive spirometer Q1hr/awake x10. Safety precautions maintained throughout the shift. Bed in lowest position and bed alarm activated. Call light within reach. Hourly rounding rendered. All needs met.
[2018-10-03 08:05] VITALS: BP 132/65; PULSE 58; RESP 18
[2018-10-03] MEDS: HYDROCODONE/APAP (10/325) TAB PO PRN ×3 (08:17→18:24)
[2018-10-03] MEDS: HYDROmorphONE 0.5 MG/0.5 ML SYG IV PRN ×2 (11:21→20:20)
--- NOTE | 2018-10-03 13:47 | PN ---
Date/Time of Note Date/Time of Note DATE: 10/03/18 TIME: 13:46 Assessment/Plan VTE Prophylaxis Risk score (from Nsg)>0 risk: 2 SCD applied (from Nsg): Yes Pharmacological prophylaxis: other Lines/Catheters IV Catheter Type (from Nrsg): Saline Lock Urinary Cath still in place: Yes Reason Cath still needed: other (indicate) Assessment/Plan Assessment/Plan s/p complex component separation with mesh dc home tomorrow Result Diagram: 10/02/18 0438 09/29/18 0427 Subjective 24 Hr Interval Summary Free Text/Dictation patient doing well tolerating diet Exam/Review of Systems Exam Vitals Vital Signs Date Temp Pulse Resp B/P (MAP) Pulse Ox O2 O2 Flow FiO2 Time Delivery Rate 10/03/18 97.6 58 18 132/65 90 Room Air 08:05 (87) Intake and Output 10/02/18 10/02/18 10/03/18 1414:59 22:59 06:59 IntakeIntake Total 700 ml 1300 ml 200 ml BalanceBalance 700 ml 1300 ml 200 ml Exam c/d/i Medications Medication Current Medications Hydromorphone HCl (Dilaudid) 0.2 mg Q2H PRN IV .PAIN 1-5 Last administered on 10/02/18at 07:39; Admin Dose 0.2 MG; Start 09/28/18 at 15:00 Hydromorphone HCl (Dilaudid) 0.4 mg Q2H PRN IV .PAIN 6-10 Last administered on 10/03/18at 11:21; Admin Dose 0.4 MG; Start 09/28/18 at 15:00 Acetaminophen (Tylenol Tab) 500 mg Q4H PRN PO .PAIN 1-3 Last administered on 10/01/18at 15:43; Admin Dose 500 MG; Start 09/28/18 at 15:00 Acetaminophen/ Hydrocodone Bitart ([place] (5/325)) 1 tab Q4H PRN PO .PAIN 4-6 Last administered on 10/03/18at 01:37; Admin Dose 1 TAB; Start 09/28/18 at 15:00 Diphenhydramine HCl (Benadryl) 25 mg Q4H PRN IV .PRURITUS; Start 09/28/18 at 15:00 Ondansetron HCl (Zofran Inj) 4 mg Q6H PRN IV .NAUSEA/VOMITING; Start 09/28/18 at 15:00 Zolpidem Tartrate (Ambien) 5 mg HS MAY REPEAT X 1 PRN PO .INSOMNIA; Start 09/28/18 at 15:00 Naloxone HCl (Narcan) 0.2 mg Q2M PRN IV .RESP RATE; Start 09/28/18 at 15:00 Miscellaneous Information (* Miscellaneous Pharmacy Order) DURAMORPH: 3.5MG EPIDU... GIVEN NEURAXIAL XX ; Start 09/28/18 at 15:00 Acetaminophen/ Hydrocodone Bitart ([place] ()) 1 tab Q4H PRN PO PAIN LEVEL 7-10 Last administered on 10/03/18at 13:02; Admin Dose 1 TAB; Start 10/02/18 at 16:30 Rishabh ALLISON Oct 03, 2018 13:47
[2018-10-03 14:34] VITALS: BP 119/63; PULSE 52; RESP 18
--- NOTE | 2018-10-03 17:13 | PN ---
Date/Time of Note Date/Time of Note DATE: 10/03/18 TIME: 17:11 Assessment/Plan VTE Prophylaxis Risk score (from Ns)>0 risk: 2 SCD applied (from Ns): Yes Pharmacological prophylaxis: NA/contraindicated Pharm contraindication: surgical contra Lines/Catheters IV Catheter Type (from Nrsg): Saline Lock Urinary Cath still in place: Yes Reason Cath still needed: urinary retention Assessment/Plan Hospital Course Patient is awake alert tolerates diet without nausea. Patient still has significant amount of pain requiring Dilaudid for breakthrough pain. The patient's continues to improve anticipate discharge home tomorrow. Plan of care discussed with Dr. Hodge. Assessment/Plan -Status post open repair of recurrent incarcerated ventral incisional hernia by Dr. Hodge on 09/28/2018. Continue [place] and Dilaudid for pain. -History of exploratory laparotomy and surgery x2 for pheochromocytoma. Further recommendations based on clinical course. Plan of care discussed with Dr. Marquez. Result Diagram: 10/02/18 0438 09/29/18 0427 Exam/Review of Systems Exam Vitals Vital Signs Date Temp Pulse Resp B/P (MAP) Pulse Ox O2 O2 Flow FiO2 Time Delivery Rate 10/03/18 98.1 52 18 119/63 93 Room Air 14:34 (81) Intake and Output 10/02/18 10/02/18 10/03/18 1515:00 23:00 07:00 IntakeIntake Total 700 ml 1300 ml 200 ml BalanceBalance 700 ml 1300 ml 200 ml Constitutional: alert, oriented Neck: supple Respiratory: clear to auscultation Cardiovascular: nl pulses Gastrointestinal: soft, other (Status post surgery) Musculoskeletal: nl extremities to inspection Extremities: normal pulses Neurological: nl mental status Medications Medication Current Medications Hydromorphone HCl (Dilaudid) 0.2 mg Q2H PRN IV .PAIN 1-5 Last administered on 10/02/18at 07:39; Admin Dose 0.2 MG; Start 09/28/18 at 15:00 Hydromorphone HCl (Dilaudid) 0.4 mg Q2H PRN IV .PAIN 6-10 Last administered on 10/03/18at 11:21; Admin Dose 0.4 MG; Start 09/28/18 at 15:00 Acetaminophen (Tylenol Tab) 500 mg Q4H PRN PO .PAIN 1-3 Last administered on 10/01/18at 15:43; Admin Dose 500 MG; Start 09/28/18 at 15:00 Acetaminophen/ Hydrocodone Bitart ([place] (5325)) 1 tab Q4H PRN PO .PAIN 4-6 Last administered on 10/03/18at 01:37; Admin Dose 1 TAB; Start 09/28/18 at 15:00 Diphenhydramine HCl (Benadryl) 25 mg Q4H PRN IV .PRURITUS; Start 09/28/18 at 15:00 Ondansetron HCl (Zofran Inj) 4 mg Q6H PRN IV .NAUSEA/VOMITING; Start 09/28/18 at 15:00 Zolpidem Tartrate (Ambien) 5 mg HS MAY REPEAT X 1 PRN PO .INSOMNIA; Start 09/28/18 at 15:00 Naloxone HCl (Narcan) 0.2 mg Q2M PRN IV .RESP RATE; Start 09/28/18 at 15:00 Miscellaneous Information (* Miscellaneous Pharmacy Order) DURAMORPH: 3.5MG EPIDU... GIVEN NEURAXIAL XX ; Start 09/28/18 at 15:00 Acetaminophen/ Hydrocodone Bitart ([place] (325)) 1 tab Q4H PRN PO PAIN LEVEL 7-10 Last administered on 10/03/18at 13:02; Admin Dose 1 TAB; Start 10/02/18 at 16:30 FELICITY ELIZABETH Oct 03, 2018 17:13
--- NOTE | 2018-10-03 18:48 | NUR ---
EOSS Heart rate in 50's which is patient's normal, doctor aware. Reports pain better managed with [place] 10/325mg. [place] helped alleviate pain for 3 hours, then patient requested IV Dilaudid. Will stay one more night for pain management. Up and ambulating around unit with SPORTS MEDICINE SPECIALIST, using walker. Self repositioning, spending time out of bed and in chair. Wound dressing not changed today by Dr. Velez or Dr. Womack. Dr. Womack stated no reason to change if the dressing is intact. Patient wearing abdominal binder. Required encouragement to use walker in the morning. Hourly rounding performed, bed kept in low locked position. Call light within reach. Plan for discharge tomorrow, patient will need pain medication scripts and is requesting [place] 10/325mg tablets. Tolerating po diet, denies constipation, passing gas.
[2018-10-03 20:25] VITALS: BP 114/70; PULSE 51; RESP 18
[2018-10-04 02:36] VITALS: BP 107/54; PULSE 43; RESP 19
[2018-10-04] MEDS: HYDROmorphONE 0.5 MG/0.5 ML SYG IV PRN (03:39)
--- NOTE | 2018-10-04 05:51 | NUR ---
EOSS: PATIENT BEEN ASSESSED FOR PAIN. PATIENT BEEN OFFERED WITH [place] BUT BEEN REQUESTING DILAUDID 0.4 MG IVP. PATIENT MADE AWARE THE IMPORTANCE OF ADHERING IN PO PAIN MED PART OF D/C PLAN ON REGARDS TO HIS PAIN MANAGEMENT. HL REMAIN PATENT. SURGICAL ABDOMINAL DSG INTACT. ABDOMINAL BINDER IN USE. PATIENT BEEN OOB FOR BRP WITH FWW USE. PASSING GAS , NO NAUSEA REPORTED. HOURLY ROUNDING RENDERED. CALL LIGHT WITHIN REACH. FALL PRECAUTION OBSERVED. ANTICIPATING D/C TO HOME TODAY.
[2018-10-04 08:46] VITALS: BP 126/67; PULSE 54; RESP 18
[2018-10-04] MEDS: HYDROCODONE/APAP (10/325) TAB PO PRN ×2 (09:47→15:08)
--- NOTE | 2018-10-04 14:00 | NUR ---
Patient is alert and oriented x4, able to make needs known; PRN [place] given as needed for pain with good effectiveness noted; no SOB/respiratory distress noted; patient had a shower this AM as cleared by Dr. Velez, dressing to midline abdominal incision was changed, clean, dry with millie intact; patient ambulates with steady gate; kept comfortable; call light placed within reached; all needs attended; Dr. Velez cleared the patient for discharge.
[2018-10-04] MEDS ORDERED: HYDR-3601 PO (14:49)
--- NOTE | 2018-10-04 15:30 | NUR ---
Discharged patient to home via wheelchair accompanied by family; all discharge instructions given and patient verbalized understanding; all home medication prescription and instruction given; IV line was discontinued with tip intact; VSS; all needs attended; to follow-up with Dr. Velez in 1-2 weeks.
--- NOTE | 2018-10-08 23:04 | DS ---
Date/Time of Note Date/Time of Note DATE: 10/08/18 TIME: 23:03 Discharge Summary Admission/Discharge Info Admit Date/Time Sep 28, 2018 at 07:41 Discharge Date/Time Oct 04, 2018 at 15:32 Patient Condition: Stable Hx of Present Illness The patient is a 53-year-old gentleman with a history of abdominal surgery for pheochromocytoma, which was subsequently complicated by recurrent incarcerated incisional hernia. The patient was seen by Dr. Velez as an outpatient and was brought into hospital today and underwent an open recurrent incarcerated incisional hernia repair with mesh and localized adjacent tissue transfer with the use of skin flaps. The patient is being admitted for further evaluation and management. The patient denies history of chest pain or shortness of breath. No history of headache, dizziness, or syncope. No history of fever or chills. No history of weakness or numbness in any extremity. No history of recent fever or chills. Hospital Course -Status post open repair of recurrent incarcerated ventral incisional hernia by Dr. Hodge on 09/28/2018. Continue [place] and Dilaudid for pain. -History of exploratory laparotomy and surgery x2 for pheochromocytoma. Plan of care discussed with Dr. Marquez. Home Meds Active Scripts Hydrocodone Bit-Acetaminophen (Hydrocodone Bit-APAP) 5-325MG Tablet, 1 TAB PO Q4H PRN for .PAIN 4-6, #20 TAB Prov:FELICITY ELIZABETH 10/04/18 Follow-up Plan Follow-up with with Dr. Hodge in 2 weeks. Primary Care Provider Not On Staff Doctor Time spent on discharge: > 30 minutes FELICITY ELIZABETH Oct 08, 2018 23:04
== END 2018-10-04 15:32 | disposition home or self-care (01) | DRG 337 ==
LOC: EDSTATUS 07:30 → REC 07:41 → MS1 18:10
PROVIDERS: ADMIT Surgery; ATTEND Surgery
PROC: 0DN80ZZ Release Small Intestine, Open Approach (ICD-10-PCS; 2018-09-28)
PROC: 0KXL0ZZ Transfer Left Abdomen Muscle, Open Approach (ICD-10-PCS; 2018-09-28)
PROC: 0KXK0ZZ Transfer Right Abdomen Muscle, Open Approach (ICD-10-PCS; 2018-09-28)
PROC: 0WUF0JZ Supplement Abdominal Wall with Synthetic Substitute, Open Approach (ICD-10-PCS; principal; 2018-09-28 10:30)
DX: K43.0 Incisional hernia with obstruction, without gangrene (principal); G89.18 Other acute postprocedural pain
CPT/HCPCS: 80048; 80053; 85025; 87086; C1781; J0295; J0360; J0690; J1100; J1170; J2250; J2274; J2405; J2765; J2795; J3010; J7120